=== PATIENT | female | born 1985 | race Caucasian/White ===

== ENCOUNTER 2016-08-15 14:16 | Day surgery (SDC) | payer BC ==
--- NOTE | ~2016-08-15 | OP ---
Record Of Operation [facility] [address] [place]. [address] NAME: HARLAN HEARD : 89 STATUS : [facility]#: [id number] AGE: 30 ADM/REG DATE : 08/15/16 MR#: [id number] REPORT SERV DATE: 08/15/16 DICTATED BY: JUSTINA JUAREZ DATE: 08/15/16 REPORT STATUS : Draft TRANSCRIBED BY: DELMER DATE: 08/15/16 DATE OF PROCEDURE: 08/15/2016 PREPROCEDURE DIAGNOSIS: Seton placed at [place] with incomplete drainage. POSTPROCEDURE DIAGNOSIS: Seton placed at [place] with incomplete drainage. PROCEDURE: Exam under anesthesia with seton. DESCRIPTION OF PROCEDURE: The patient was taken to the operating room, induced under MAC anesthetic, prepped and draped in the usual sterile fashion. A pudendal nerve block was placed with a total of 10 mL of TAP block solution bilaterally. The patient already had a seton in place. The seton was blue, which goes from the internal opening of the fistula to the external opening, which is in a deep scar from prior abscess. The anus was dilated with a small, then medium lighted Hill-Montoya retractor. There are two openings that are visible, the main opening and then a smaller lateral and posterior opening. Attempt was made to track the second opening, but it appears to be a blind end at this point. The main tract is drained. However, externally if you press or decompress the abscess cavity which is anterior to the external opening, pus comes out of the external opening, it is inadequately drained, so the granulation tissue was curetted from the tract initially after attempt was made to pass probes down the second opening and from the external opening internally. The decision was made to use hydrogen peroxide, which actually did not come out of either internal openings. It came back out the external opening because it is the largest opening. However, when decompressing this abscess cavity, the opening was visible at the external tract and a probe was placed down this tract laterally where the skin was incised with cautery and a hemostat was placed external to internal grasping the seton which the vessel loop was tied onto itself x3. There was no further pus at this time. The patient was cleaned and dried followed by two 4x4s, peripad, and mesh panties. She tolerated the procedure well. WILLIE/DELMER Justina Juarez M.D. / [id number] CC: Keegan Allen M.D.
[~2016-08-15 14:16] MED LIST: *DENIES
[2016-11-10] MEDS ORDERED: FLAG500TAB PO (11:07)
== END 2016-08-15 18:06 | disposition home or self-care (01) ==
LOC: SDC 14:16
PROVIDERS: Surgery
PROC: 0DQQ7ZZ Repair Anus, Via Natural or Artificial Opening (ICD-10-PCS; principal; 2016-08-15 15:45)
DX: K60.3 Anal fistula (principal); Z90.89 Acquired absence of other organs; Z98.890 Other specified postprocedural states
CPT/HCPCS: 84703; J1885; J2250; J2795; J3010

== ENCOUNTER 2016-10-10 11:45 | Day surgery (SDC) | payer BC ==
--- NOTE | ~2016-10-10 | OP ---
Record Of Operation [facility] [address] [place]. [address] NAME: HARLAN HEARD : 89 STATUS : [facility]#: [id number] AGE: 31 ADM/REG DATE : 10/10/16 MR#: [id number] REPORT SERV DATE: 10/10/16 DICTATED BY: JUSTINA JUAREZ DATE: 10/10/16 REPORT STATUS : Draft TRANSCRIBED BY: DELMER DATE: 10/10/16 DATE OF PROCEDURE: 10/10/2016 PREPROCEDURE DIAGNOSIS: Recurrent transsphincteric [id number]. POSTPROCEDURE DIAGNOSIS: Recurrent transsphincteric [id number]. ASSISTANTS: Kayla. DESCRIPTION OF PROCEDURE: The patient was taken to the operating room, positioned in the left lateral decubitus position. Informed consent was obtained followed by IV sedation delivered by PHOTOCOPIER TECHNICIAN. Digital rectal exam was performed. The internal opening was palpable. The patient had a Seton in place. The anus was dilated after placement of a pudendal nerve block with 10 mL of TAP block solution. Then the Seton was cut. A hemostat was placed on either side to hold it in place and a fistula probe was used to keep the fistula palpable. Then dissection began first by injecting local anesthetic 1 cm from the anal verge in the left lateral aspect overlying the fistula. This was a 1 cm incision carried down to the external sphincter, first with a blade, then with a cautery. At the external sphincter, the fibers were spread in the direction of the fibers so not as to cut them, simply spread them apart. The fistula was palpable beneath and it was dissected out circumferentially using first a hemostat and then a right angle clamp. Following that, silk suture was passed beneath the fistula internally and near the external opening. After this, the fistula was cleaned of all granulation tissue using a #3 curette, it was irrigated using hydrogen peroxide, and then it was ligated at the internal opening through the incision and at the external opening using 3-0 Vicryl sutures. The intervening fistula tract itself was cut and removed, passed off the table and sent to pathology. Granulation tissue from the external opening was sent as external opening. The wound was irrigated. Then, the internal opening was closed with a series of [id number] 2-0 Vicryl sutures until no further hydrogen peroxide was evident in the wound when placing it through the internal opening. When it was watertight, the external opening was completely clear. Then the muscle fibers were relaxed back into position. This suture a 3-0 Vicryl suture was used to close the interrupted incision and then followed by 4-0 Monocryl, with the RB needle once that was in place. The patient was cleaned and dried followed by triple antibiotic ointment followed by two 4x4s, peripad, and mesh panties. She tolerated the procedure well. WILLIE/DELMER Justina Juarez M.D. / [id number] CC: Justina Juarez M.D. Record Of Operation [address] [address] NAME: HARLAN HEARD : 89 STATUS : [facility] PAT#: [id number] AGE: 31 ADM/REG DATE : 10/10/16 MR#: [id number] REPORT SERV DATE: 10/10/16 DICTATED BY: JUSTINA JUAREZ DATE: 10/10/16 REPORT STATUS : Draft TRANSCRIBED BY: DELMER DATE: 10/10/16 Sana Estrella M.D.
[2016-11-10] MEDS ORDERED: FLAG500TAB PO (11:07)
== END 2016-10-10 16:08 | disposition home or self-care (01) ==
LOC: SDC 11:45
PROVIDERS: Surgery
PROC: 0DBQ0ZZ Excision of Anus, Open Approach (ICD-10-PCS; principal; 2016-10-10 13:00)
DX: K60.3 Anal fistula (principal)
CPT/HCPCS: 84703; 88305; A9270-GY; J0690; J1170; J1885; J2250; J2405; J2795; J3010